=== PATIENT | female | born 1995 | race African-American/Black ===

== ENCOUNTER 2022-12-22 05:54 | Emergency (ER) | payer OTHER ==
[2022-12-22 06:14] VITALS: BP 118/81; PULSE 60; RESP 18; TEMP 97.7; BMI 24.7
[2022-12-22 07:39] LABS: POTASSIUM 3.8 mmol/L (3.5-5.1)
[2022-12-22 07:41] LABS: ALBUMIN 4.3 g/dl (3.4-5.0); BLOOD UREA NITROGEN 11.8 mg/dL (7-18); CALCIUM 8.9 mg/dL (8.5-10.1)
[2022-12-22 07:44] LABS: CREATININE 0.9 mg/dL (0.55-1.3)
[2022-12-22 07:46] LABS: BILIRUBIN,TOTAL 0.3 mg/dL (0.2-1); TOT PROT 8.2 g/dl (6.4-8.2)
[2022-12-22 08:21] LABS: EPI CELLS >36 /uL (0-25.1); HYALINE CASTS 2 /uL (0-3.1); PH,URINE 6.5 (5.0-8.0); URINE APPEARANCE CLEAR; URINE BACTERIA 160 /uL (0-1359); URINE BILIRUBIN NEGATIVE (NEGATIVE); URINE COLOR YELLOW; URINE GLUCOSE (UA) NEGATIVE (NEGATIVE); URINE KETONE NEGATIVE (NEGATIVE); URINE LEUK ESTERASE 1+ (NEGATIVE); URINE NITRITE NEGATIVE (NEGATIVE); URINE PROTEIN NEGATIVE (NEGATIVE); URINE RBC 8 /uL (0-23.9); URINE UROBILINOGEN 0.2 mg/dL (0.2-1.0); URINE WBC 55 /uL (0-25.8)
[2022-12-22 08:23] LABS: BASO % 0.3 % (0-2.0); EOS % 1.8 % (0-4.5); HEMOGLOBIN 19.3 GM/dL (10.7-15.3); LYMPH % 38.5 % (8-40); MCH 34.1 pg (25.7-33.7); MCHC 34.5 g/dl (32.0-36.0); MEAN CELL VOLUME 98.9 fl (80-96); MEAN PLT VOLUME 8.3 fl (7.5-11.1); MONO % 3.9 % (3.8-10.2); NEUT % 55.5 % (42.8-82.8); PLATELET COUNT 91 10^3/uL (134-434); RBC 5.67 M/mm3 (3.60-5.2); RDW 13.6 % (11.6-15.6); WHITE BLOOD COUNT 3.7 K/mm3 (4.0-10.0)
[2022-12-22] MEDS ORDERED: DOXYCYCLINE HYCLATE 100 MG CAPSULE PO ONE ×2 (08:29→08:31)
[2022-12-22] MEDS ORDERED: cefTRIAXone SODIUM 1 GM VIAL ONE (08:35)
[2022-12-22 09:41] LABS: SYPHILIS W/ RPR CONF NON-REACTIVE (NONREACTIVE)
[2022-12-22 10:09] LABS: HIV INTERPRETATION NEGATIVE (NEGATIVE)
== END 2022-12-22 08:53 | disposition home or self-care (01) ==
LOC: JER 05:54
DX: R10.30 Lower abdominal pain, unspecified (principal); R11.0 Nausea; A64 Unspecified sexually transmitted disease
CPT/HCPCS: 36415; 80053; 81003; 84703; 85025; 86705; 86780; 87086; 87340; 87389; 87491; 87517; 87522; 87591; 99284-25